=== PATIENT | female | born 1960 | race Caucasian/White ===

== ENCOUNTER → 2016-12-15 | Outpatient (CLI) | payer MEDICARE, OTHER ==
[2015-03-22 18:20] VITALS: BP 129/76
--- NOTE | 2016-12-15 15:39 | RAD ---
PROCEDURE Cervical spine MRI without contrast. HISTORY Right upper extremity weakness and numbness status post fall. TECHNIQUE Multiplanar and multi sequence magnetic resonance imaging of the cervical spine was performed without contrast. COMPARISON CT dated 08/06/2016. FINDINGS There is mild cervical kyphosis. There is minimal retrolisthesis of C3 on C4. There is degenerative endplate remodeling with disc space narrowing predominately at C4-C5 and C5-C6. There are chronic superior and inferior endplate depressions with superimposed Schmorl's nodes at C3. There is also a mild superior endplate depression with Schmorl's node at T4. There is no acute or subacute fracture. No spinal cord lesion is seen. At C2-C3, there is no stenosis. At C3-C4, there is endplate remodeling. There is right uncovertebral arthropathy. There is mild bilateral facet arthropathy. There is mild right foraminal stenosis. At C4-C5, there is a disc bulge and endplate osteophytosis. There is uncovertebral arthropathy. There is mild bilateral facet arthropathy. There is mild to moderate bilateral foraminal stenosis. There is deformation of the ventral aspect of the spinal cord and mild central canal stenosis measuring 9.0 mm in anterior-posterior dimension. At C5-C6, there is a disc bulge and endplate osteophytosis. There is uncovertebral arthropathy. There is mild facet arthropathy. There is mild to moderate bilateral foraminal stenosis. There is deformation of the ventral aspect of the spinal cord without significant central canal stenosis. At C6-C7, there is a disc bulge and endplate osteophytosis. There is uncovertebral arthropathy. There is no stenosis. IMPRESSION 1. Multilevel degenerative change within the cervical spine, resulting in stenosis as described in detail above. 2. Mild cervical kyphosis and slight retrolisthesis of C3 on C4. 3. Chronic endplate depressions with Schmorl's nodes at C3 and mild superior endplate depression with Schmorl's node at T4. There is no acute or subacute fracture. Electronically signed by: Denise Pugh (Dec 15, 2016 15:38:17)
--- NOTE | 2016-12-15 16:19 | RAD ---
PROCEDURE Facial MRI without contrast. HISTORY Rght sided jaw pain. TECHNIQUE Multiplanar and multi sequence magnetic resonance imaging of the maxillofacial bones were obtained without contrast. COMPARISON None. FINDINGS There is artifact from dental instrumentation limiting the anterior maxilla and mandible. There is no marrow edema or cortical irregularity to suggest a fracture. No suspicious osseous lesion is seen. There is no marrow signal abnormality. The temporomandibular joints are intact. The orbits, ethmoid and maxillary and sphenoid sinuses are unremarkable. The mastoid air cells are clear. The visualized portions of the brain are unremarkable. There are normal flow voids within the visualized cerebral vessels. The parotid and submandibular and submental glands are unremarkable. No pathologically enlarged lymph node is seen. There are superior and inferior endplate depressions with Schmorl's nodes at C3. There is slight cervical kyphosis. IMPRESSION No acute maxillofacial finding. Specifically, no findings to correlate with reported jaw pain. Evaluation is limited due to artifact from dental instrumentation. Electronically signed by: Denise Pugh (Dec 15, 2016 16:17:49)
== END | disposition home or self-care (01) ==
LOC: MRI 14:05
PROVIDERS: ATTEND General Practice
DX: M54.2 Cervicalgia (principal); R68.84 Jaw pain
CPT/HCPCS: 70540; 72141